=== PATIENT | male | born 1990 | race Caucasian/White ===

== ENCOUNTER 2016-12-25 08:46 | Emergency (ER) | payer BC ==
[~2016-12-25] VITALS: Ht 182.9 cm; Wt 90.0 kg
[2016-12-25 08:49] VITALS: BP 118/63; PULSE 98; RESP 16; TEMP 98.2; O2SAT 99
[2016-12-25] MEDS ORDERED: CYCL5TAB PO (09:18)
--- NOTE | 2016-12-25 09:18 | PD ---
HPI . back pain since yesterday Chief Complaint: Back/ Neck Pain or Injury Time Seen by Provider: 09:07 Travel History International Travel<30 days: Yes Contact w/Intl Traveler<30days: Yes Name of Country Traveled to: [facility], [place] Traveled to known affect area: Yes History of Present Illness HPI 26 yr old male with no past medical history here with complaints of back pain since yesterday. Patient was in the pool with his dog when the dog needed assistance getting out and he lifted the dog and threw it out of the pool. He reports that he started experiencing back pain immediately afterwards. The dog is about 50 pounds. He denies any bowel or bladder dysfunction. He denies any saddle anesthesia. He complains of pain in the lower back. PFSH Past Medical History Medical History: Denies Significant Hx Social History Alcohol Use: No Tobacco Use: No Substance Use: No Allergies-Medications (Allergen,Severity, Reaction): Coded Allergies: No Known Allergies (Unverified , 12/25/16) Reported Meds & Prescriptions Reported Meds & Active Scripts Active Flexeril (Cyclobenzaprine HCl) 5 Mg Tab 5 Mg PO TID Review of Systems General / Constitutional: No: Fever Eyes: No: Visual changes HENT: No: Headaches Cardiovascular: No: Chest Pain or Discomfort Respiratory: No: Shortness of Breath Gastrointestinal: No: Abdominal Pain Genitourinary: No: Dysuria Musculoskeletal: Positive: Pain (lumbar back) Skin: No Rash Neurologic: No: Weakness Psychiatric: No: Depression Endocrine: No: Polydipsia Hematologic/Lymphatic: No: Easy Bruising Physical Exam Narrative GENERAL: AAO x 3, no acute distress, Well-nourished, well-developed patient. SKIN: Warm and dry. No visible rashes or bruising. HEAD: Normocephalic and atraumatic. EYES: No scleral icterus. No injection or drainage. ENT: No nasal drainage noted. Mucous membranes pink. Airway patent. NECK: Supple, trachea midline. No JVD. CARDIOVASCULAR: Regular rate and rhythm without murmurs, gallops, or rubs. RESPIRATORY: Breath sounds equal bilaterally. No accessory muscle use. No rhonchi or rales. GASTROINTESTINAL: visual inspection normal EXTREMITIES: No cyanosis or edema. FULL ROM b/l LE. BACK: Nontender without obvious deformity. No CVA tenderness. Paraspinal tenderness in lumbar spine PSYCH: AAO x 3, normal affect. Data Data Last Documented VS Vital Signs Date Time Temp Pulse Resp B/P Pulse Ox O2 Delivery O2 Flow Rate FiO2 12/25/16 08:49 98.2 98 16 118/63 99 MDM Medical Decision Making Medical Screen Exam Complete: Yes Emergency Medical Condition: Yes Medical Record Reviewed: Yes Differential Diagnosis muscle strain, lumbago, lumbar radiculopathy Narrative Course 26 yr old male with no past medical history here with complaints of back pain since yesterday. Patient was in the pool with his dog when the dog needed assistance getting out and he lifted the dog and threw it out of the pool. He reports that he started experiencing back pain immediately afterwards. The dog is about 50 pounds. He denies any bowel or bladder dysfunction. He denies any saddle anesthesia. He complains of pain in the lower back. Patient seen and examined. He has paraspinal tenderness along the L spine area, but no spinous process tenderness. This appears to be cervical strain. I will provide him with muscle relaxers. We discussed the side effects. Patient verbalized understanding of instructions, questions were answered, and thanked me for their care. I advised them if their condition worsens, please return to the nearest emergency room for further care. Diagnosis Primary Impression: Muscle strain Patient Instructions: General Instructions Additional Instructions: Please return to emergency department if your symptoms return or worsen. Follow up with your primary care provider. Take medications as prescribed. Muscle relaxers can cause drowsiness. Do not drive, swim or operate heavy machinery while using these medications. Scripts Cyclobenzaprine (Flexeril)5 Mg Tab5 Mg PO TID #21 TAB Prov:Shellie Coyne DO 12/25/16 Disposition: 01 DISCHARGE HOME Condition: Stable Arit Sellers December 25, 2016 09:18 Arti Sellers December 25, 2016 09:18
== END 2016-12-25 09:28 | disposition home or self-care (01) ==
LOC: NEPK 08:46
DX: S39.012A Strain of muscle, fascia and tendon of lower back, initial encounter (principal); X50.0XXA Overexertion from strenuous movement or load, initial encounter; Y92.89 Other specified places as the place of occurrence of the external cause
CPT/HCPCS: 99283

== ENCOUNTER 2018-10-17 12:01 | Observation (INO) ==
[2018-10-17 12:17] VITALS: TEMP 98.2
--- NOTE | 2018-10-17 12:33 | ED ---
HPI General Chief Complaint: Chest Pain Stated Complaint: mid chest pain-no pain now-x 1 wk/dizzy Time Seen by Provider: 10/17/18 12:21 History of Present Illness HPI narrative: This is a 28-year-old male with no significant past medical history, presents today with complaints of chest pain. Patient states that about a week ago, he had about 30 minutes of substernal chest tightness. He does state that he was running through the terminal to get to the plane. He states it went away. He states he had another episode like this today. He denies any exertional component to it. He did report that he had some sweating. There is no nausea. There is no shortness of breath or palpitations. Patient has no cardiac history. He does have family history of stroke. His father had a stroke in his younger years. He denies any tobacco history. He does drink alcohol at times. He reports that he will have 5 or 6 beers a night when he is not flying. There are no other complaints at the time of examination. Related Data Home Medications Medication Instructions Recorded Confirmed No Known Home Medications 10/17/18 10/17/18 Allergies Allergy/AdvReac Type Severity Reaction Status Date / Time No Known Allergies Allergy Verified 10/17/18 12:17 Review of Systems ROS: all other systems reviewed are negative Constitutional Reports system reviewed and no additional complaints, except [facility] Eyes Reports system reviewed and no additional complaints, except as [facility] ENT Reports system reviewed and no additional complaints, except as [facility] Cardiovascular Reports chest pain, Reports diaphoresis, Denies rapid heart rate, Denies leg edema, Denies palpitations and Denies dyspnea Respiratory Denies chest congestion, Denies cough and Denies dyspnea Gastrointestinal Denies abdominal pain, Denies nausea and Denies vomiting Genitourinary Reports system reviewed and no additional complaints, except as [facility] Musculoskeletal Reports other (No calf swelling or tenderness.) Neurologic Reports system reviewed and no additional complaints, except as [facility] Medical History Medical History Patient denies medical problems (Acute) Surgical History Surgical History No history of previous surgery (Acute) Social History Social History Substance History: No History of Abuse Smoking Status: Never smoker How Often Do You Have a Drink Containing Alcohol: 4 or more times a week Recent Travel in [facility] within the Last 8 Weeks: No Recent Out of Country Travel within the Last 8 Weeks: No Immunization History Tetanus Immunization: Unsure Exam Narrative Exam Narrative: GENERAL: Well-developed well-nourished male in no acute respiratory distress. SKIN: Focused skin assessment warm/dry. HEAD: Atraumatic. Normocephalic. EYES: No scleral icterus. No injection or drainage. ENT: No nasal bleeding or discharge. Mucous membranes pink and moist. NECK: Trachea midline. Supple. CARDIOVASCULAR: Regular rate and rhythm. No murmur appreciated. RESPIRATORY: No accessory muscle use. Clear to auscultation. Breath sounds equal bilaterally. GASTROINTESTINAL: Abdomen soft, non-tender, nondistended. Hepatic and splenic margins not palpable. MUSCULOSKELETAL: No obvious deformities. No clubbing. No cyanosis. No edema. NEUROLOGICAL: Awake and alert. No obvious cranial nerve deficits. Motor grossly within normal limits. Normal speech. Course Initial Documented Vital Signs Temperature 98.2 F 10/17/18 12:13 Pulse Rate 61 10/17/18 12:13 Respiratory Rate 16 10/17/18 12:13 Blood Pressure 124/77 10/17/18 12:13 Pulse Oximetry 97 10/17/18 12:13 Last Documented Vital Signs Temperature 98.2 F 10/17/18 12:13 Pulse Rate 72 10/17/18 13:49 Respiratory Rate 16 10/17/18 13:49 Blood Pressure 147/81 H 10/17/18 13:49 Pulse Oximetry 97 10/17/18 13:49 Medical Decision Making MDM Narrative Medical decision making narrative: 28-year-old male who presents with 2 episodes of chest pain. Patient reports they lasted 30 minutes each time. Last one was today. First 1 was 1 week ago. He reports that he had exertional component with his first episode however today it just came on suddenly without notice. Patient's EKG and cardiac enzymes are within normal limits. The patient does work as a commercial drafter. Given this, he will be admitted to the chest pain center for rule out protocol. Case was discussed with the on-call [facility] hospitalist, who agrees with the observation admission. Patient is amenable to the plan. Medical Screen Exam Complete: Yes Emergency Medical Condition: Yes Differential Diagnosis Differential Diagnosis: ACS versus peptic ulcer disease versus muscular skeletal pain Lab Data Result diagrams: 10/17/18 12:35 10/17/18 12:35 Lab Results 10/17/18 10/17/18 10/17/18 Range/Units 12:35 12:35 12:35 CBC w Diff Auto diff final WBC 6.4 (4.0-11.0) th/mm3 RBC 5.06 (4.50-5.90) mil/mm3 Hgb 15.7 (13.0-17.0) gm/dL Hct 45.5 (39.0-51.0) % MCV 89.9 (80.0-100.0) fL MCH 31.1 (27.0-34.0) pg MCHC 34.6 (32.0-36.0) % RDW 11.7 (11.6-17.2) % Plt Count 208 (150-450) th/mm3 MPV 8.9 (7.0-11.0) fL Neut % (Auto) 42.0 (16.0-70.0) % Lymph % (Auto) 46.2 H (9.0-44.0) % Todd % (Auto) 8.7 H (0.0-8.0) % Eos % (Auto) 1.7 (0.0-4.0) % Baso % (Auto) 1.4 (0.0-2.0) % Neut # (Auto) 2.7 (1.8-7.7) th/mm3 Lymph # (Auto) 2.9 (1.0-4.8) th/mm3 Todd # (Auto) 0.6 (0.0-0.9) th/mm3 Eos # (Auto) 0.1 (0.0-0.4) th/mm3 Baso # (Auto) 0.1 (0.0-0.2) th/mm3 WBC Differential . Differential Comment . D-Dimer Quant (PE/DVT) Less than 0.19 (0.00-0.50) mg/L FEU Sodium 138 (136-145) meq/L Potassium 3.9 (3.5-5.1) meq/L Chloride 105 (98-107) meq/L Carbon Dioxide 26.7 (21.0-32.0) meq/L Anion Gap 6 (5-15) meq/L BUN 17 (7-18) mg/dL Creatinine 1.00 (0.60-1.30) mg/dL Estimated GFR 89 (>89) mL/min Random Glucose 95 (74-106) mg/dL Calcium 9.4 (8.5-10.1) mg/dL Total Bilirubin 0.7 (0.2-1.0) mg/dL AST 26 (15-37) U/L ALT 63 (12-78) U/L Alkaline Phosphatase 84 (45-117) U/L Total Creatine Kinase 168 (39-308) U/L CK-MB (CK-2) Less than 1.0 (0.5-3.6) ng/mL Troponin I Less than 0.02 L (0.02-0.05) ng/mL Total Protein 7.6 (6.4-8.2) g/dL Albumin 4.1 (3.4-5.0) g/dL Imaging Data Radiologist's impression: Chest X-Ray 10/17/18 12:33 CONCLUSION: The lungs are clear. Discharge Plan Discharge Disposition Patient Disposition: ED Admit(ED Internal Use Only) Discharge Order Discharge Orders: ED Use Only Admit Order (Routine); Ordered 10/17/18 Ordered By: Fabien Chase Discharge Details Diagnosis: Atypical chest pain Physicians Team ED Provider: Fabien Chase Primary Care Provider: Primary Care Liliana Paez Attending Provider: Rip Rasheed Status ED Status: Admitted Observation Patient
[2018-10-17 12:47] LABS: Baso # (Auto) 0.1 th/mm3 (0.0-0.2); Baso % (Auto) 1.4 % (0.0-2.0); Eos # (Auto) 0.1 th/mm3 (0.0-0.4); Eos % (Auto) 1.7 % (0.0-4.0); Hematocrit 45.5 % (39.0-51.0); Hemoglobin 15.7 gm/dL (13.0-17.0); Lymph # (Auto) 2.9 th/mm3 (1.0-4.8); Lymph % (Auto) 46.2 % (9.0-44.0); Mean Corpuscular HGB Conc 34.6 % (32.0-36.0); Mean Corpuscular Hemoglobin 31.1 pg (27.0-34.0); Mean Corpuscular Volume 89.9 fL (80.0-100.0); Mean Platelet Volume 8.9 fL (7.0-11.0); Mono # (Auto) 0.6 th/mm3 (0.0-0.9); Mono % (Auto) 8.7 % (0.0-8.0); Neut # (Auto) 2.7 th/mm3 (1.8-7.7); Platelet Count 208 th/mm3 (150-450); Red Blood Count 5.06 mil/mm3 (4.50-5.90); Red Cell Distribution Width 11.7 % (11.6-17.2); White Blood Count 6.4 th/mm3 (4.0-11.0)
[2018-10-17 12:57] LABS: Chloride 105 meq/L (98-107); Potassium 3.9 meq/L (3.5-5.1); Sodium 138 meq/L (136-145)
[2018-10-17 13:00] LABS: Calcium 9.4 mg/dL (8.5-10.1)
[2018-10-17 13:01] LABS: Albumin 4.1 g/dL (3.4-5.0); Anion Gap 6 meq/L (5-15); Blood Urea Nitrogen 17 mg/dL (7-18); Carbon Dioxide 26.7 meq/L (21.0-32.0); Glucose,Random 95 mg/dL (74-106)
[2018-10-17 13:04] LABS: Alanine Aminotransferase 63 U/L (12-78); Aspartate Aminotransferase 26 U/L (15-37); Glomerular Filtration Rate 89 mL/min (>89)
[2018-10-17 13:06] LABS: Total Protein 7.6 g/dL (6.4-8.2)
[2018-10-17 13:07] LABS: Alkaline Phosphatase 84 U/L (45-117); Creatine Kinase 168 U/L (39-308)
--- NOTE | 2018-10-17 13:10 | XR ---
EXAM DATE: 10/17/2018 1:04 PM EST AGE/SEX: 28 years / Male INDICATIONS: Patient states tightness in chest. CLINICAL DATA: This is the patient's initial encounter. Patient reports that signs and symptoms have been present for 1 week and indicates a pain score of 0/10. MEDICAL/SURGICAL HISTORY: None. None. COMPARISON: No prior exams available for comparison. FINDINGS: A single AP view of the chest demonstrates the lungs to be symmetrically aerated without evidence of mass, infiltrate or effusion. The cardiomediastinal contours are unremarkable. Osseous structures a re intact. CONCLUSION: The lungs are clear. Electronically signed by: Jim Trimble MD Board Certified Radiologist 10/17/2018 1:08 PM EST
[2018-10-17 13:50] VITALS: O2SAT 97
[2018-10-17 15:18] VITALS: BP 145/84
[2018-10-17 15:19] LABS: Creatine Kinase 157 U/L (39-308)
--- NOTE | 2018-10-17 15:56 | P.HPIM ---
History of Present Illness Primary Care Physician: No Primary Care Physician Chief Complaint: Chest pain History of Present Illness: 28-year-old male with no go while he was vigorously walking he developed a squeezing sensation in his chest with associated dizziness and shortness of breath that lasted for approximate 30 minutes and resolved on its own. He was in normal state of health until today when he was walking around his house and he developed the same type of discomfort at approximately 930 this morning. Denied any diaphoresis, nausea, vomiting, radiation into the neck, back, shoulder, arm. Patient denies any previous workup. It was recommended by the ER physician the patient be observed and chest pain center for further evaluation and management. Diagnosis (1) Atypical chest pain: Review of Systems Review of Systems: all other systems reviewed are negative Cardiovascular: Reports chest pain PMFSH Medical History Medical History Patient denies medical problems (Acute) Surgical History Surgical History No history of previous surgery (Acute) Family History Family History Father Family history of heart disease Social History Social History Substance History: No History of Abuse Second Hand Smoke Exposure: No Smoking Status: Former smoker Tobacco Type: Cigarettes How Often Do You Have a Drink Containing Alcohol: 4 or more times a week Recent Travel in [facility] within the Last 8 Weeks: No Recent Out of Country Travel within the Last 8 Weeks: No Immunization History Tetanus Immunization: Unsure Medications and Allergies Allergies Allergy/AdvReac Type Severity Reaction Status Date / Time No Known Allergies Allergy Verified 10/17/18 12:17 Home Medications Medication Instructions Recorded Confirmed Type No Known Home Medications 10/17/18 10/17/18 History Active Medications: Active Medications Sodium Chloride (Ns Flush) 2 ml IV.FLUSH UNSCH PRN PRN Reason: FLUSH AFTER USING IV ACCESS Sodium Chloride (Ns Flush) 2 ml IV.FLUSH BID RYAN Sodium Chloride (Ns Flush) 2 ml IV.FLUSH PRN PRN PRN Reason: FLUSH AFTER USING IV ACCESS Physical Exam Vital signs: Vital Signs 10/17/18 12:13 10/17/18 12:41 10/17/18 13:49 Temperature 98.2 F Pulse Rate 61 98 H 72 Respiratory Rate 16 16 Blood Pressure 124/77 147/81 H Pulse Oximetry 97 98 97 10/17/18 15:17 Temperature Pulse Rate 76 Respiratory Rate 16 Blood Pressure 145/84 H Pulse Oximetry Intake & Output 10/16/18 10/17/18 10/17/18 18:59 06:59 18:59 Weight 94.3 kg Narrative: GENERAL: Well-developed, well-nourished, in no acute distress. alert and orientated HEENT: Head is normocephalic without any lesions or masses noted. Facial features are symmetric. Eyes: Pupils equal round reactive to light. Extraocular muscles are intact. Conjunctivae were clear. Oropharyngeal: Pharynx without any erythema edema. Tongue is midline without deviation. Buccal mucosa is moist without any masses or lesions NECK: Supple without any masses. Trachea midline no deviation. No JVD, no bruits are appreciated CARDIAC: Regular rhythm, regular rate. S1/S2 are heard. No murmurs gallops or rubs. LUNGS: Clear to auscultation bilaterally. No wheeze, rhonchi or rales. No use of accessory muscles on inspiration or expiration. ABDOMEN: Soft, nontender. Nondistended. Bowel sounds heard in all 4 quadrants. No organomegaly or masses. Negative rebound, negative guarding EXTREMITIES: No edema, pulses are equal bilaterally. No cyanosis or clubbing NEUROLOGY: Mood and affect appear appropriate. Cranial nerves II through XII grossly intact. Muscle strength 5/5 in upper and lower extremities bilaterally. Deep tendon reflexes are 2+ in upper and lower extremities bilaterally. Results Labs CBC & Chem 7: 10/17/18 12:35 10/17/18 12:35 Imaging Impressions Chest X-Ray 10/17/18 12:33 CONCLUSION: The lungs are clear. Caprini VTE Risk Assessment Caprini VTE Risk Assessment: No/Low Risk (score <= 1) Caprini Risk Assessment Model: Point Value = 1 Point Value = 2 Point Value = 3 Point Value = 5 Age 41-60 Minor surgery BMI > 25 kg/m2 Swollen legs Varicose veins or History of unexplained or recurrent spontaneous Oral contraceptives or hormone replacement Sepsis (< 1 month) Serious lung disease, including pneumonia (< 1 month) Abnormal pulmonary function Acute myocardial infarction Congestive heart failure (< 1 month) History of inflammatory bowel disease Medical patient at bed rest Age 61-74 Arthroscopic surgery Major open surgery (> 45 min) Laparoscopic surgery (> 45 min) Malignancy Confined to bed (> 72 hours) Immobilizing plaster cast Central venous access Age >= 75 History of VTE Family history of VTE Factor V Leiden Prothrombin [id number] Lupus anticoagulant Anticardiolipin antibodies Elevated serum homocysteine Heparin-induced thrombocytopenia Other congenital or acquired thrombophilia Stroke (< 1 month) Elective arthroplasty Hip, pelvis, or leg fracture Acute spinal cord injury (< 1 month) Prophylaxis Regimen: Total Risk Factor Score Risk Level Prophylaxis Regimen 0-1 Low Early ambulation 2 Moderate Order ONE of the following: *Sequential Compression Device (SCD) *Heparin 5000 units SQ BID 3-4 Higher Order ONE of the following medications: *Heparin 5000 units SQ TID *Enoxaparin/Lovenox 40 mg SQ daily (WT < 150 kg, CrCl > 30 mL/min) *Enoxaparin/Lovenox 30 mg SQ daily (WT < 150 kg, CrCl > 10-29 mL/min) *Enoxaparin/Lovenox 30 mg SQ BID (WT < 150 kg, CrCl > 30 mL/min) AND/OR *Sequential Compression Device (SCD) 5 or more Highest Order ONE of the following medications: *Heparin 5000 units SQ TID (Preferred with Epidurals) *Enoxaparin/Lovenox 40 mg SQ daily (WT < 150 kg, CrCl > 30 mL/min) *Enoxaparin/Lovenox 30 mg SQ daily (WT < 150 kg, CrCl > 10-29 mL/min) *Enoxaparin/Lovenox 30 mg SQ BID (WT < 150 kg, CrCl > 30 mL/min) AND *Sequential Compression Device (SCD) Assessment and Plan (1) Atypical chest pain: Code(s): R07.89 - Other chest pain Status: Acute Plan Chest pain, atypical Patient with minimal risk factors include family history of heart disease Patient has been ruled out for acute coronary event with serial cardiac enzymes that are negative Serial EKGs reviewed by myself which did not show any acute abnormality, sinus rhythm, no changes Chest x-ray was performed which did not indicate any acute abnormality, d- dimer was negative for any embolic event Exercise stress test was performed and indicated completely normal examination , no signs of ischemia Patient continued on aspirin, nitroglycerin as needed Continue monitor telemetry DVT prevention Low risk, early ambulation Discussed Condition With: Patient, nursing staff, Dr. Rasheed Patient seen and examined with above mid-level provider. The exam, history, and the medical decision making described in the above note were completed with the assistance of the above mid-level provider. I, Rip Rasheed, attest that I had a [id number] encounter with the patient on the same day and I personally performed all or some portion of the history, exam, or medical decision making. I discussed the case with the above mid-level provider thoroughly after seeing the patient. I have reviewed and agree with the plan please see below for additional input: Patient denies having any chest pain at this time. Denies any shortness of breath. 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 No evidence of pneumothorax or pneumomediastinum on workup. On exam is clear lungs bilaterally, unlabored breathing Heart sounds regular rate rhythm, no murmurs Awake alert, no acute distress No facial droop, no slurred speech Ambulating without difficulty No lower extremity edema Overall appears to be a young healthy well-nourished white male in no acute distress Stress test negative, agree with discharge, advised to pursue treatment for GERD with OTC medications. Discharge Planning: Discharge home in stable condition Activity: Ad kiko. Diet: Regular diet Medication per medication reconciliation Follow-up with primary medical doctor in 1 week
--- NOTE | 2018-10-17 16:55 | ECG ---
Date Performed: 10/17/2018 Time Performed: 12:52:22 PTAGE: 28 years EKG: SINUS BRADYCARDIA POSSIBLE RIGHT VENTRICULAR CONDUCTION DELAY BORDERLINE ECG NO PREVIOUS TRACING DOCTOR: Shyam Duran Interpretating Date/Time 10/17/2018 16:54:53
[2018-10-17 17:14] VITALS: PULSE 67; RESP 14
--- NOTE | 2018-10-17 21:14 | ECG ---
Date Performed: 10/17/2018 Time Performed: 15:07:24 PTAGE: 28 years EKG: Sinus rhythm POSSIBLE RIGHT VENTRICULAR CONDUCTION DELAY BORDERLINE ECG PREVIOUS TRACING : 10/17/2018 12.52 No significant change from previous tracing noted. DOCTOR: Shyam Duran Interpretating Date/Time 10/17/2018 21:13:12
--- NOTE | 2018-10-19 12:19 | TR ---
Date Performed: 10/17/2018 Time Performed: 16:37:09 DOCTOR: Luis Miller DRUG LIST: CLINICAL HISTORY: CHEST PAIN REASON FOR TEST: REASON FOR ENDING: Completed Protocol OBSERVATION: Arrhythmia: None Chest Pain: None CONCLUSION: Desi tolerated JOSEPH protocol with Total Exercise Time=10:01 Maximum OS=668 % Max HR Achieved=95.0% Maximum XI=484/80, Patien tasymptomatic during procedure, testing stopped secondar y to goals achieved, During peak exercise, patient hat upsloping ST segments, no significant St depre ssions, HR and BP appropriate response to exercise, Recovery period, HR and BP returned to baseline COMMENTS:
== END 2018-10-17 17:47 | disposition home or self-care (01) ==
LOC: PHED 12:01 → PHEDA 12:01 → PH3 15:40
PROVIDERS: ADMIT Hospitalist; ATTEND Hospitalist
CPT/HCPCS: 71010; 71045; 80053; 82550; 82552; 84484; 85025; 85379; 93005; 93017; 99285; G0378